=== PATIENT | male | born 1950 | race Hispanic/Latino ===

== ENCOUNTER → 2020-06-02 | Day surgery (SDC) | payer MEDICARE, OTHER ==
[2020-05-28 14:38] LABS: BASOPHILS % 0.9 % (0.0-1.0); EOSINOPHILS # (AUTO) 0.1 (0.0-0.4); EOSINOPHILS % 1.2 % (0.0-6.0); HEMATOCRIT 31.1 % (38.2-49.6); HEMOGLOBIN 11.2 g/dL (14.0-18.0); LYMPHOCYTES # (AUTO) 1.2 (1.0-3.2); LYMPHOCYTES % 28.2 % (18.0-39.1); MEAN CORPUSCULAR HEMOGLOBIN 35.6 pg (28-32); MEAN CORPUSCULAR VOLUME 98.7 fL (81-99); MONOCYTES # (AUTO) 0.3 (0.2-0.8); MONOCYTES % 7.2 % (4.4-11.3); NEUTROPHILS # (AUTO) 2.7 (2.1-6.9); NEUTROPHILS % 62.3 % (38.7-80.0); PLATELET COUNT 167 x10e3/uL (140-360); RED BLOOD COUNT 3.15 x10e6/uL (4.3-5.7); RED CELL DISTRIBUTION WIDTH 14.3 % (11.7-14.4)
[~2020-06-02] MED LIST: ASPIRIN81 MG PO; ATENOLOL-CHLOR1 EACH PO; ATORVASTATIN CA10 MG PO; COQ-10100 MG PO; EVISTA60 MG PO; FENTANYL CITRATE/PF 100MCG/2 ML INJ ONE; FERROUS SULFAT325 MG; GLYBURIDE-METF1 EAC1 PO; GLYCOPYRROLATE INJ 0.2 MG/ML VIAL ONE; HYOSCYAMINE 0.125 MG TAB ONE; JARDIANCE PO; KETAMINE HCL INJ 50 MG/ML 10 ML VIAL ONE; LANTUS 3ML100 UNITS/ SQ; LIDOCAINE HCL 2% LOCAL INJ 5 ML SDV VIAL INJ ONE; LISINOPRIL40 MG PO; LOSARTAN POTASS50 MG PO; MAGNESIUM PO; METFORMIN HCL500 MG PO; METOCLOPRAMIDE HCL 10 MG/2ML VIAL ONE; MIDAZOLAM HCL 2 MG/2 ML VIAL ONE; NEXIUM40 MG PO; NIFEDIPINE10 MG PO; OMEPRAZOLE40 MG PO; POTASSIUM CHLOR8 ME1 PO; PROPOFOL IV EMULSION 10 MG/ML 20 ML VIAL ONE; REVATIO20 MG PO; SIMVASTATIN40 MG PO; VITAMIN B-121000 MCG PO
[2020-06-02 11:02] VITALS: BP 170/86
[2020-06-02 11:45] LABS: % IRON SATURATION 31 % (15-50); IRON 93 ug/dL (65-175); TOTAL IRON BINDING CAPACITY 301 ug/dL (261-478); TRANSFERRIN 215 mg/dL (174-364)
--- NOTE | 2020-06-02 13:08 | Operative Report ---
DATE OF PROCEDURE: 06/02/2020 SURGEON: Julian Navarro MD PROCEDURES: EGD with polypectomy and biopsies note and colonoscopy. INDICATIONS FOR EGD: Dyspepsia, guaiac-positive stools. INDICATIONS FOR COLONOSCOPY: Personal history of colon cancer, anemia, guaiac-positive stools. MEDICATIONS: The patient was done under MAC, please see anesthesiologist's note. PROCEDURE IN DETAIL: With the patient in the left lateral decubitus position, a flexible fiberoptic Olympus gastroscope was introduced into the esophagus under direct visualization without any difficulty. There was some patchy erythema noted in distal esophagus. The scope was then advanced with ease into the stomach traversing a small hiatal hernia. Mucosa overlying the antrum and the body revealed some patchy erythema and [id number] edema, and biopsies were obtained and sent to stain for H. pylori. There was some focal raised area in the mid and proximal antrum, and biopsies were obtained. Some hyperplastic-appearing polyps were noted in the body of the stomach and some were partially excised with the cold biopsy forceps. The pylorus was of normal contour and shape, was intubated with ease and the scope was advanced all the way to the second portion of the duodenum. A minute nodule was noted in the proximal second portion and that was biopsied. Biopsies were obtained from the second portion of the duodenum as well as the duodenal bulb to rule out sprue. The scope was then withdrawn back into the stomach and retroflexed, and a minute polyp was noted in the fundus of the stomach that was partially excised with the cold biopsy forceps. The cardia appeared to be within normal limits. The scope was then straightened out, it was subsequently withdrawn, and the patient tolerated the procedure well. IMPRESSION: 1. Distal esophagitis, mild. 2. Small hiatal hernia. 3. Gastritis, biopsied, biopsies sent to stain for Helicobacter pylori. 4. Gastric polyps, hyperplastic-appearing, body, some partially excised with the cold biopsy forceps. 5. Rule out sprue. 6. Duodenal polyp, proximal second portion, partially excised with the cold biopsy forceps. PLAN: Follow up histology. Increase Nexium to 40 mg one p.o. before meals b.i.d. The patient was then turned around and after adequate lubrication of the anal canal, a flexible fiberoptic Olympus colonoscope was inserted into the rectum with ease and advanced all the way to the cecum. Mucosa overlying the cecum appeared to be within normal limits. Some minimal diverticular disease was noted in the proximal ascending colon. The rest of the ascending, transverse, and descending appeared to be within normal limits. Anastomosis was noted at 20 cm from the anal verge and it was intact, and there was no evidence of recurrence. Mucosa overlying the rectum appeared to be within normal limits. The scope was then retroflexed into the distal rectum and small internal hemorrhoids were noted, none of which was actively bleeding. The scope was then straightened out, it was subsequently withdrawn, and the patient tolerated the procedure well. IMPRESSION: 1. Diverticulosis, ascending colon. 2. Anastomosis at 20 cm from the anal verge, intact, without evidence of recurrence. 3. Internal hemorrhoids, none actively bleeding. PLAN: Initiate high-fiber, low-fat diet. Initiate high-fiber supplement. Findings do not necessarily explain the patient's anemia or positive blood in the stools. We will need small bowel series and if negative, then a capsule endoscopy will be in order. Julian Navarro MD [facility] [place] /[id number] cc: Isaiah Saleem MD
== END | disposition home or self-care (01) ==
LOC: OR 06:58
PROVIDERS: ATTEND Internal Medicine Gastroenterology
DX: R19.5 Other fecal abnormalities (principal); K31.7 Polyp of stomach and duodenum; K29.70 Gastritis, unspecified, without bleeding; K31.89 Other diseases of stomach and duodenum; K57.30 Diverticulosis of large intestine without perforation or abscess without bleeding; Z98.0 Intestinal bypass and anastomosis status; K20.9 Esophagitis, unspecified; K44.9 Diaphragmatic hernia without obstruction or gangrene; K64.8 Other hemorrhoids; I49.3 Ventricular premature depolarization; R06.83 Snoring; I10 Essential (primary) hypertension; E11.9 Type 2 diabetes mellitus without complications; D64.89 Other specified anemias; Z01.810 Encounter for preprocedural cardiovascular examination; Z01.812 Encounter for preprocedural laboratory examination; Z11.59 Encounter for screening for other viral diseases; Z79.4 Long term (current) use of insulin; Z68.31 Body mass index [BMI] 31.0-31.9, adult; Z85.038 Personal history of other malignant neoplasm of large intestine; Z86.010 Personal history of colon polyps; Z80.0 Family history of malignant neoplasm of digestive organs
CPT/HCPCS: 36415 ×2; 43239; 45378; 82607; 82747; 82948; 83540; 84466; 85025; 85045; 93005; J2001; J2250; J2704; J2765; J3010; U0002